=== PATIENT | male | born 1980 | race Caucasian/White ===

== ENCOUNTER 2019-07-11 10:42 | Emergency (ER) | payer BC ==
[~2019-07-11] VITALS: Ht 182.8 cm; Wt 108.8 kg
--- NOTE | 2019-07-11 11:09 | ED Lower Extremity ---
General Chief Complaint: Lower Extremity Stated Complaint: L KNEE PAIN Nursing Triage Note: PT AMB TO TRIAGE WITH COMPLAINT OF LEFT KNEE PAIN. STATES POSSIBLY HURT HIS KNEE THURSDAY. Nursing Sepsis Screen: No Definite Risk Source: patient Exam Limitations: no limitations History of Present Illness Date Seen by Provider: Jul 11, 2019 Time Seen by Provider: 11:08 Initial Comments To ER with reports of left knee pain that began 2 days ago, no known injury. Knee feels swollen. He frequently has a popping sensation in his knee even before the swelling started. Onset: just prior to arrival Severity: moderate Pain/Injury Location: left knee Method of Injury: unknown Allergies and Home Medications Allergies Coded Allergies: No Known Drug Allergies (Unverified , 03/22/15) Home Medications Naproxen 500 Mg Tablet, 500 MG PO BID Prescribed by: MIGUE ROSENTHAL on 07/11/19 1247 Patient Home Medication List Home Medication List Reviewed: Yes Review of Systems Constitutional: see HPI EENTM: see HPI Respiratory: no symptoms reported Cardiovascular: no symptoms reported Genitourinary: no symptoms reported Musculoskeletal: see HPI Skin: no symptoms reported Psychiatric/Neurological: No Symptoms Reported Past Eqemgfq-Iycaik-Euchwg Hx Patient Social History Alcohol Use: Occasionally Uses Recreational Drug Use: Yes Drug of Choice: MARIJUANA Smoking Status: Never a Smoker Recent Foreign Travel: No Contact w/Someone Who Travel: No Recent Infectious Disease Expo: No Recent Hopitalizations: No Immunizations Up To Date PED Vaccines UTD: Yes Seasonal Allergies Seasonal Allergies: No Past Medical History Surgeries: No Respiratory: No Cardiac: No Neurological: No Genitourinary: No Gastrointestinal: No Musculoskeletal: No Endocrine: No HEENT: No Cancer: No Psychosocial: No Integumentary: No Blood Disorders: No Physical Exam Vital Signs Vital Signs - First Documented 07/11/19 10:47 Pulse 80 Resp 20 B/P (MAP) 184/121 (142) Pulse Ox 98 O2 Delivery Room Air Capillary Refill : Less Than 3 Seconds Height, Weight, BMI Height: '" Weight: lbs. oz. kg; 32.00 BMI Method: General Appearance: WD/WN, no apparent distress HEENT: PERRL/EOMI, normal ENT inspection Neck: non-tender, full range of motion Respiratory: no respiratory distress, no accessory muscle use Hips: bilateral hip non-tender, bilateral hip normal inspection, bilateral hip normal range of motion Legs: bilateral leg non-tender, bilateral leg normal inspection, bilateral leg normal range of motion Knees: left knee pain, left knee swelling Ankles: bilateral ankle non-tender, bilateral ankle normal inspection, bilateral ankle normal range of motion Feet: bilateral foot non-tender, bilateral foot normal inspection, bilateral foot normal range of motion Neurologic/Psychiatric: alert, normal mood/affect, oriented x 3 Skin: normal color, warm/dry No fevers or chills no erythema to the left knee but there is a palpable effusion rather large. Procedures/Interventions Additional Procedures: Arthrocentesis Aspirating Progress Left knee was aspirated. The area 1 similar superior 1 cm lateral to the superior and lateral border of the patella was identified, marked with a skin pen then cleansed with Betadine swab. The area was anesthetized locally with 1 mL of 1% lidocaine without epinephrine. A larger 18-gauge 1/2 inch needle was then attached to a 20 mL syringe, a total of 75 mL of cloudy straw-colored synovial fluid was aspirated. Bandage was applied over this, this was taken down to lab by me for crystal analysis, cell count, culture. Progress/Results/Core Measures Results/Orders Lab Results Laboratory Tests Test 07/11/19 11:37 Range/Units Body Fluid Source SYNOVIAL Body Fluid Color YELLOW Body Fluid Appearance MOD CLDY Body Fluid WBC 05775 /uL Body Fluid RBC 0 /uL Body Fluid Crystals CA PYROPHOSPHATE My Orders Orders - MIGUE ROSENTHAL APRN Knee, Left, 3 Views (07/11/19 10:51) Body Fluid Cell Count (07/11/19 11:11) Body Fluid Culture (07/11/19 11:11) Crystals,Body Fluid (07/11/19 11:11) Lidocaine 1% Inj 20 Ml (Xylocaine 1% Inj (07/11/19 11:30) Lidocaine 1% Inj 20 Ml (Xylocaine 1% Inj (07/11/19 11:23) Medications Given in ED Current Medications Medications Dose Ordered Sig/Everardo Route Start Time Stop Time Status Last Admin Dose Admin Lidocaine HCl 20 ml ONCE ONCE INJ 07/11/19 11:30 07/11/19 11:38 DC 07/11/19 11:28 20 ML Vital Signs/I&O 07/11/19 10:47 Pulse 80 Resp 20 B/P (MAP) 184/121 (142) Pulse Ox 98 O2 Delivery Room Air Blood Pressure Mean: 142 Departure Impression Primary Impression: Effusion, left knee Additional Impression: Pseudogout of knee Disposition: 01 HOME, SELF-CARE Condition: Stable Departure-Patient Inst. Decision time for Depature: 11:41 Referrals: HANS BALLESTEROS MD (PCP) Primary Care Physician Patient Instructions: Calcium Pyrophosphate Deposition Disease Add. Discharge Instructions: 1. Medication as directed 2. Follow-up with your regular doctor later this week for recheck. Return to ER for any fevers worsening symptoms or other concerns. All discharge instructions reviewed with patient and/or family. Voiced understanding. Scripts Naproxen (Naprosyn) 500 Mg Tablet 500 MG PO BID, #14 TAB 0 Refills Prov: MIGUE ROSENTHAL APRN 07/11/19 MIGUE ROSENTHAL APRN Jul 11, 2019 11:09
[2019-07-11] MEDS ORDERED: LIDOCAINE 1% INJ 20 ML 20 ML VIAL ONE (11:23)
--- NOTE | 2019-07-11 11:23 | Diagnostic Imaging Report ---
CLINICAL HISTORY: Left anterior knee pain for two days. COMPARISON: None. TECHNIQUE: Three views of the left knee. FINDINGS: There is no acute fracture or dislocation of the left knee. Old avulsion fracture is noted at the tibial tuberosity. Alignment is anatomic. The imaged joint spaces are preserved. Moderate joint effusion is present. No prepatellar soft tissue edema. IMPRESSION: 1. No acute fracture or dislocation in the left knee. 2. Old avulsion fracture at the tibial tuberosity. 3. Moderate joint effusion. Dictated by: Dictated on workstation # [id number]
[2019-07-11] MEDS ORDERED: LIDOCAINE 1% INJ 20 ML 20 ML VIAL INJ ONE (11:30)
[2019-07-11 12:39] LABS: BODY FLUID APPEARENCE MOD CLDY; BODY FLUID COLOR YELLOW; BODY FLUID SOURCE SYNOVIAL
[2019-07-11 12:40] LABS: BODY FLUID RBC COUNT 0 /uL; BODY FLUID WBC TOTAL COUNT 48800 /uL
[2019-07-11] MEDS ORDERED: NAPR-1071 PO (12:47)
[2019-07-11 12:53] VITALS: BP 155/90
[2019-07-11 13:25] LABS: LYMPHOCYTES,BODY FLUID 9 %
== END 2019-07-11 12:53 | disposition home or self-care (01) ==
LOC: EDUNIT# 10:42 → ER 10:42
DX: M11.262 Other chondrocalcinosis, left knee (principal)
CPT/HCPCS: 73562; 87070; 87205; 89051; 89060